=== PATIENT | male | born 1985 | race Caucasian/White ===

== ENCOUNTER 2025-04-12 10:57 | Emergency (ER) | payer BC, SELFPAY ==
[2025-04-12 11:00] VITALS: BP 159/100
[2025-04-12 11:22] LABS: % Basophils 0.3 % (0-2); % Eosinophils 3.2 % (0-6); % Immature Granulocytes 0.3 % (0-0.5); % Lymphocytes 24.4 % (20.5-51.1); % Monocytes 8.5 % (1.7-9.3); % Neutrophils 63.3 % (42.2-75.2); Absolute Eosinophils 0.3 10^3/uL (0-0.7); Absolute Lymphocytes 2.2 10^3/uL (1.2-3.4); Absolute Monocytes 0.8 10^3/uL (0.1-0.6); Absolute Neutrophils 5.6 10^3/uL (1.4-6.5); Hematocrit 45.3 % (39.0-52.0); Hemoglobin 16.1 g/dL (13.0-18.0); Mean Corp Hgb Conc. 35.5 g/dL (33.0-37.0); Mean Corpuscular Volume 87.1 fL (80.0-94.0); Mean Platelet Volume 10.1 fL (7.4-10.4); Nucleated Red Blood Cells % 0 % (-); Platelet Count 222 10^3/uL (130-400); Red Cell Dist. Width 12.3 % (11.5-14.5); White Blood Cell Count 8.8 10^3/uL (4.8-10.8)
[2025-04-12 11:41] LABS: ALT (SGPT) 42 U/L (0-50); AST (SGOT) 32 U/L (17-59); Albumin 4.6 g/dl (3.5-5.0); Alkaline Phosphatase 54 U/L (38-126); Blood Urea Nitrogen 12 mg/dl (9-20); Calcium 9.4 mg/dl (8.4-10.2); Carbon Dioxide 22 mmol/L (22-30); Chloride 108 mmol/L (98-107); Glucose 103 mg/dl (70-99); Potassium 4.3 mmol/L (3.5-5.1); Sodium 139 mmol/L (135-145); Total Bilirubin 1.3 mg/dl (0.2-1.3); Total Protein 7.3 g/dl (6.3-8.2); eGFR > 60.00
--- NOTE | 2025-04-12 11:54 | ED.GENMED ---
History of Present Illness
General
Chief Complaint: Swelling
Source: patient
Exam Limitations: none
Time Seen by Provider: 04/12/25 11:37
History of Present Illness
History of Present Illness:
39yoM with no significant past medical history presenting with his for evaluation of neck swelling. Patient noticed a painful lump to his left neck about 2 days ago. He had similar swelling a few months ago and his PCP ordered an ultrasound
which was reportedly normal. He was told it was likely salivary gland swelling. Symptoms completely resolved up until 2 days ago. He started to notice swelling underneath this tongue this morning. He reports trouble swallowing and pain with
tongue movement. He denies any dental pain, fevers, chills.
Past History
Past History
ED Past Medical History: None
ED Past Surgical History: None
Social History
Tobacco: Smoker
Alcohol: Occasional
Drug: None
Personal:
Living: with family
Employment: Employed
Phy Exam
General Physical Exam
General Presentation: well appearing and no apparent distress
General Skin: warm and dry
General Habitus: normal
General Mental: alert
ENT Exam
ENT Exam: TM's normal, pharynx normal, normocephalic and other (There is a focal area of swelling to the L submandibular region. Swelling noted at Giles's duct with expressible purulence. Airway patent and phonation is normal. )
Pulmonary Exam
Pulmonary Exam: no respiratory distress
Neurological Exam
Neurological Exam: alert
[place] Coma Scale
Eye Opening: Spontaneous
Verbal Response: Oriented
Motor Response: Obeys Commands
GCS Total Score: 15
Skin Exam
Skin Exam: normal color and warm/dry
Psychiatric Exam
Psychiatric Exam: normal mood/affect
Course
Orders/Labs/Results
Orders:
Orders
04/12/25 11:13
CMP [Comprehensive Metabolic Panel] Urgent
Complete Blood Count/With Diff Urgent
04/12/25 11:48
CT Neck W/wo Iv Contrast Urgent
Reason For Exam: L sided neck swelling
0.9% Sodium Chloride 1000 ml [Nss] 1,000 ml IV BOLUS
Ketorolac [Toradol] 15 mg IV NOW STA
Abnormal Lab Results
04/12/25
11:13
Absolute Monos (auto) 0.8 H 10^3/uL
(0.1-0.6)
Chloride 108 H mmol/L
(98-107)
Glucose 103 H mg/dl
(70-99)
04/12/25 11:13
04/12/25 11:13
Vital Signs
Initial and Last Documented VS:
Initial Vital Signs
Temp Pulse Resp BP Pulse Ox
98.3 F 95 19 159/100 97
04/12/25 11:00 04/12/25 11:00 04/12/25 11:00 04/12/25 11:00 04/12/25 11:00
Last Documented Vital Signs
Temp Pulse Resp BP Pulse Ox
98.3 F 95 19 117/79 96
04/12/25 11:00 04/12/25 11:00 04/12/25 11:00 04/12/25 13:00 04/12/25 13:15
MDM/Problems Addressed
Differential Diagnosis Includes:
39yoM here with L sided neck swelling x 2 days. Started having pain underneath tongue today. Similar episode a few months ago. No f/c. He is well appearing in no distress. He is hypertensive with otherwise stable vitals. There is focal swelling in
the L submandibular area with expressible purulence at Giles's duct. Differential diagnosis includes but is not limited to: sialoadenitis, sialolithiasis, lymphadenopathy
Initial ED plan: Check CBC, CMP, and CT soft tissue neck. IV Toradol for symptoms.
*Critical Care Note
Total Time (30-74mins, 75-104mins- exclusive of procedures): Not Applicable
Update Note
Update Note:
Labs unremarkable including normal white count. CT shows enlarged left submandibular gland which appears to be secondary to sialolithiasis. Patient feeling improved on reassessment. He was started on a course of Augmentin. Supportive care
reviewed including hydration, sour candies, massage, and NSAIDs. Advised follow-up with ENT. ED return precautions reviewed including fevers. Patient in agreement with plan and was discharged in stable condition.
ED Attending Note
-
Portions of this chart may have been created with voice recognition software.� Occasional wrong word or��sound alike� substitutions may have occurred due to the inherent limitations of voice recognition software.
Discharge Plan
Departure
Patient Disposition: Home (Routine Discharge)
Date of Disposition: 04/12/25
Time of Disposition: 13:19
Patient with high blood pressure during this ER visit?: Yes
Discharge Problem:
Acute sialoadenitis
Instructions: Salivary Gland Infection (DC)
Prescriptions:
New
amoxicillin-pot clavulanate 875-125 mg tablet
1 tab PO BID Qty: 14 0RF
Referrals:
Brayden Macias MD [Active, Otology]
Levar De Leon, [Family Provider]
Rosendo Tabares MD [Active, Otology]
Stand Alone Forms: Return to Work
Activity Restrictions/Additional Instructions:
Take antibiotics as prescribed. Drink plenty of fluids and stay hydrated. Use gentle massage, sour candies, and ibuprofen to help with swelling.
Please follow-up with the ENT. Return to the ER with any worsening symptoms including fevers or chills.
Interventions
Interventions:
*Risk Screen - Suicide Last Done: 04/12/25 11:00
*General Assessment Last Done: 04/12/25 11:48
*Neglect/Abuse Screening Last Done: 04/12/25 11:00
*ED- Fall Risk Assessment Last Done: 04/12/25 11:48
*ED COVID-19 Vaccine History Last Done: 04/12/25 11:48
*Nursing Disposition Last Done: 04/12/25 13:59
ED- Cardiac Assessment Last Done: 04/12/25 11:48
ED- Pulmonary Assessment Last Done: 04/12/25 11:48
ED-Skin Assessment Last Done: 04/12/25 11:48
Discharge Date and Time
Discharge Date/Time: 04/12/25 14:00
Print Language: MALAY
[2025-04-12] MEDS: NSS 1000 IV (11:56)
[2025-04-12] MEDS: TORADOL 15 MG IV (11:56)
[2025-04-12 12:02] VITALS: BP 152/87
[2025-04-12 13:00] VITALS: BP 117/79
== END 2025-04-12 14:00 | disposition home or self-care (01) ==
LOC: EMR 10:57
PROVIDERS: Emergency Medicine; EMERGENCY PHYSICIAN Emergency Medicine; FAMILY PHYSICIAN Family Medicine
DX: K11.21 Acute sialoadenitis (principal); M54.2 Cervicalgia; R22.1 Localized swelling, mass and lump, neck; R13.10 Dysphagia, unspecified; R03.0 Elevated blood-pressure reading, without diagnosis of hypertension; F17.200 Nicotine dependence, unspecified, uncomplicated; Z88.5 Allergy status to narcotic agent
CPT/HCPCS: 99284; 96361; 96374; 70492; 80053; 85025; Q9967